=== PATIENT | female | born 1945 | race Caucasian/White ===

== ENCOUNTER 2018-03-20 00:05 | Inpatient (IN) ==
[2018-03-21 09:30] VITALS: RESP 18; TEMP 97.4; O2SAT 96
[2018-03-21 11:31] VITALS: BP 147/78; PULSE 76
== END 2018-03-21 12:12 | disposition home or self-care (01) ==
LOC: PHED 00:05 → PHEDA 03:29 → PH3 08:08
PROVIDERS: ADMIT Internal Medicine; ATTEND Internal Medicine